=== PATIENT | male | born 1995 | race Caucasian/White ===

== ENCOUNTER 2017-02-10 23:44 | Observation (INO) | payer BC ==
[~2017-02-10] VITALS: Ht 185.4 cm; Wt 90.1 kg
[2017-02-11 01:03] LABS: CHLORIDE 104 mEq/L (99-109); POTASSIUM 4.1 mEq/L (3.7-5.4); SODIUM 140 mEq/L (136-147)
[2017-02-11 01:06] LABS: GLUCOSE 143 mg/dL (70-99)
[2017-02-11 01:07] LABS: ANION GAP 13 MEQ/L (2-14)
[2017-02-11 01:08] LABS: TOTAL BILIRUBIN 0.7 mg/dL (0.0-1.0)
[2017-02-11 01:09] LABS: ALKALINE PHOSPHATASE 94 IU/L (3-129); GFR ESTIMATE (CALCULATED) > 59 mL/min/
[2017-02-11 01:10] LABS: UREA NITROGEN (BUN) 21 mg/dL (9-23)
[2017-02-11 01:11] LABS: BASOPHIL COUNT 0.1 K/uL (0-0.1); EOSINOPHIL (%) 0.4 % (0-5); EOSINOPHIL COUNT 0.1 K/uL (0-0.3); HEMATOCRIT 49.9 % (38.0-50.0); IMMATURE GRANULOCYTE (%) 0.4 % (0.0-0.7); IMMATURE GRANULOCYTE COUNT 0.1 K/uL; INSTRUMENT ABS NEUTROPHIL CT 17.7 K/uL; LYMPHOCYTE COUNT 0.7 K/uL (1.0-2.8); MCH 28.2 PG (29.0-34.0); MCHC 34.5 G/DL (30.0-36.0); MCV 81.9 FL (86-99); MEAN PLAT.VOLUME 9.7 uM^3 (9.0-12.4); MONOCYTE COUNT 1.2 K/uL (0-0.8); NEUTROPHIL (%) 89.2 % (45-76); NEUTROPHIL COUNT 17.7 K/uL (1.8-6.4); PLATELET COUNT 276 K/uL (156-360); RBC DIS.WIDTH-CV 11.9 % (11.8-14.6); RBC DIS.WIDTH-SD 35.3 % (39-53); RED BLOOD COUNT 6.09 M/uL (4.00-5.50); WHITE BLOOD COUNT 19.8 K/uL (4.1-10.2)
[2017-02-11 01:13] LABS: LIPASE 19 U/L (1.0-51.0)
[2017-02-11 03:29] LABS: SERUM ETHYL ALCOHOL < 10 mg/dL
[2017-02-11 03:50] VITALS: BP 137/63
[2017-02-11 07:23] VITALS: BP 109/53
[2017-02-11 09:43] LABS: HEMATOCRIT 45.5 % (38.0-50.0); MCH 28.4 PG (29.0-34.0); MCHC 34.3 G/DL (30.0-36.0); MCV 82.7 FL (86-99); MEAN PLAT.VOLUME 9.7 uM^3 (9.0-12.4); PLATELET COUNT 229 K/uL (156-360); RBC DIS.WIDTH-CV 12.2 % (11.8-14.6); RBC DIS.WIDTH-SD 36.9 % (39-53); WHITE BLOOD COUNT 15.5 K/uL (4.1-10.2)
[2017-02-11 10:07] LABS: ANION GAP 11 MEQ/L (2-14); CHLORIDE 103 MEQ/L (99-109); GFR ESTIMATE (CALCULATED) > 59 mL/min/; GLUCOSE 148 mg/dL (70-99); SAMPLE HEMOLYSIS CHECK 0; SAMPLE ICTERIC CHECK 0; SAMPLE LIPEMIA CHECK 0; SODIUM 138 MEQ/L (136-147); UREA NITROGEN (BUN) 22 mg/dL (9-23)
[2017-02-11 11:19] VITALS: BP 105/66
[2017-02-11 15:17] LABS: INFLUENZA A VIRAL ANTIGEN NEGATIVE; INFLUENZA B VIRAL ANTIGEN NEGATIVE
[2017-02-11 16:00] VITALS: BP 112/50
[2017-02-11 19:00] VITALS: BP 106/53
[2017-02-12] VITALS: BP 129/60
[2017-02-12 03:46] VITALS: BP 122/58
[2017-02-12 06:37] LABS: HEMATOCRIT 42.6 % (38.0-50.0); MCHC 33.3 G/DL (30.0-36.0); MEAN PLAT.VOLUME 9.9 uM^3 (9.0-12.4); PLATELET COUNT 185 K/uL (156-360); RBC DIS.WIDTH-CV 12.2 % (11.8-14.6); RBC DIS.WIDTH-SD 37.1 % (39-53); RED BLOOD COUNT 5.07 M/uL (4.00-5.50)
[2017-02-12 06:50] LABS: ANION GAP 4 MEQ/L (2-14); CHLORIDE 105 MEQ/L (99-109); GFR ESTIMATE (CALCULATED) > 59 mL/min/; POTASSIUM 3.7 MEQ/L (3.7-5.4); SAMPLE HEMOLYSIS CHECK 0; SAMPLE ICTERIC CHECK 0; SAMPLE LIPEMIA CHECK 0; SODIUM 139 MEQ/L (136-147); UREA NITROGEN (BUN) 11 mg/dL (9-23)
[2017-02-12 06:51] LABS: GLUCOSE 102 mg/dL (70-99)
[2017-02-12 07:17] VITALS: BP 148/65
[2017-02-12 07:27] LABS: WHITE BLOOD COUNT 7.5 K/uL (4.1-10.2)
[2017-02-12] MEDS ORDERED: ZOFRAN ODT4 MG PO (07:36)
== END 2017-02-12 09:19 | disposition home or self-care (01) ==
LOC: EME 23:44 → EDOF 02-11 03:08 → 5WEST 02-11 03:08 → EDOF 02-11 03:08 → 5WEST 02-11 03:40
PROVIDERS: Emergency Medicine; Nurse Practitioner Family
DX: K52.9 Noninfective gastroenteritis and colitis, unspecified (principal)
CPT/HCPCS: 74177; 80048; 80053; 81003; 83690; 85025; 85027; 87502; 99281; 99284; G0378; G0480; J2270; J2405; J2765; J3010; J7030; S0028